=== PATIENT | male | born 1985 | race Hispanic/Latino ===

== ENCOUNTER 2017-10-29 14:39 | Emergency (ER) | payer SELFPAY ==
[2017-10-29] MEDS ORDERED: TETANUS/DIPHTHERIA TOXOID [ADULT] 0.5 ML VIAL IM ONE (15:39)
== END 2017-10-29 15:44 | disposition home or self-care (01) ==
LOC: EDH 14:39
DX: N48.89 Other specified disorders of penis (principal); Z72.0 Tobacco use
CPT/HCPCS: 90471; 90714

== ENCOUNTER 2018-01-24 13:38 | Emergency (ER) | payer OTHER | END 2018-01-24 14:09 | disposition home or self-care (01) | LOC: EDH 13:38 | DX: S09.8XXA Other specified injuries of head, initial encounter (principal); R07.89 Other chest pain; F31.9 Bipolar disorder, unspecified; Z72.0 Tobacco use; W22.8XXA Striking against or struck by other objects, initial encounter; Y93.89 Activity, other specified; Y92.89 Other specified places as the place of occurrence of the external cause; Y99.8 Other external cause status | CPT/HCPCS: 93005 ==

== ENCOUNTER 2018-05-10 18:45 | Emergency (ER) | payer OTHER ==
[2018-05-10 19:07] LABS: BASOPHILS % (AUTO) 0.4 % (0.0-5.0); EOSINOPHILS % (AUTO) 0.3 % (0.0-8.0); HEMATOCRIT 48.7 % (42-54); LYMPHOCYTES % (AUTO) 7.9 % (21.0-51.0); MEAN CORPUSCULAR HEMOGLOBIN 29.9 pg (27.0-33.0); MEAN CORPUSCULAR HGB CONC 34.3 g/dL (32.0-36.0); MEAN CORPUSCULAR VOLUME 87.3 fL (79-99); MONOCYTES % (AUTO) 8.6 % (3.0-13.0); NEUTROPHILS % (AUTO) 82.8 % (40.0-77.0); PLATELET COUNT (AUTO) 392 K/uL (130-400); RED BLOOD CELL COUNT(AUTO) 5.58 MIL/uL (4.50-6.20); WHITE BLOOD COUNT (AUTO) 15.5 K/uL (4.8-10.8)
[2018-05-10] MEDS ORDERED: SODIUM CHLORIDE 0.9% 1000ML 1,000 ML IV ONE (19:07)
[2018-05-10 19:19] LABS: CREATININE 2.5 mg/dL (0.5-1.5)
[2018-05-10] MEDS ORDERED: ONDANSETRON HCL 4 MG/2 ML VIAL ONE (19:21)
[2018-05-10 19:24] LABS: ALBUMIN 3.5 g/dL (3.5-5.0); BILIRUBIN,TOTAL 0.5 mg/dL (0.2-1.0)
[2018-05-10 20:18] LABS: BILIRUBIN,URINE Negative (NEGATIVE); COLOR,URINE Yellow (YELLOW); GLUCOSE, URINE (UA) Negative (NEGATIVE); KETONES,URINE Negative (NEGATIVE); LEUKOCYTE ESTERASE ,URINE Trace (NEGATIVE); NITRATE,URINE Negative (NEGATIVE); OCCULT BLOOD,URINE Negative (NEGATIVE); PH,URINE 5.5 (5.0-8.0); PROTEIN,URINE Negative (NEGATIVE)
[2018-05-10 20:24] LABS: AMPHET/METH SCREEN,URINE NEGATIVE (NEGATIVE); BARBITURATE SCREEN, URINE NEGATIVE (NEGATIVE); BENZODIAZEPINES SCREEN,URINE NEGATIVE (NEGATIVE); CANNABINOID SCREEN,URINE POSITIVE (NEGATIVE); COCAINE SCREEN,URINE POSITIVE (NEGATIVE); OPIATE SCREEN,URINE NEGATIVE (NEGATIVE); PHENCYCLIDINE SCREEN,URINE NEGATIVE (NEGATIVE)
[2018-05-10 20:29] LABS: APPEARANCE,URINE SLIGHTLY CLOUDY (CLEAR)
[2018-05-10 20:34] LABS: RBC,URINE 0-1 /HPF (0-1)
[2018-05-10 20:35] LABS: BACTERIA,URINE Few /HPF (None Seen)
[2018-05-10 20:36] LABS: SQUAMOUS EPITHELIAL CELL,UR Rare /HPF (0-2)
[2018-05-10 20:37] LABS: URIC ACID CRYSTALS,URINE Few /LPF (None Seen)
[2018-05-10 20:38] LABS: MUCUS,URINE Few LPF (None Seen)
== END 2018-05-10 21:34 | disposition home or self-care (01) ==
LOC: EDH 18:45
DX: T67.5XXA Heat exhaustion, unspecified, initial encounter (principal); N28.9 Disorder of kidney and ureter, unspecified; F14.10 Cocaine abuse, uncomplicated; F41.9 Anxiety disorder, unspecified; F31.9 Bipolar disorder, unspecified; Z72.0 Tobacco use; X58.XXXA Exposure to other specified factors, initial encounter; Y93.89 Activity, other specified; Y92.89 Other specified places as the place of occurrence of the external cause; Y99.8 Other external cause status
CPT/HCPCS: 36415; 80053; 80305; 81001; 82550; 85025; 96374; 99285; J2405; J7030

== ENCOUNTER → 2024-12-15 | Emergency (ER) | payer SELFPAY ==
[~2024-12-15] VITALS: Ht 190.5 cm; Wt 158.8 kg
[~2024-12-15] MED LIST: IOHEXOL-350 75 ML VIAL IV ONE
[2024-12-15 08:28] VITALS: BP 145/84; PULSE 113; RESP 18; TEMP 98.5
[2024-12-15 08:49] LABS: BASOPHILS # (AUTO) 0.08 K/uL (0.00-0.20); BASOPHILS % (AUTO) 0.4 % (0.0-5.0); EOSINOPHILS # (AUTO) 0.04 K/uL (0.00-0.70); EOSINOPHILS % (AUTO) 0.2 % (0.0-8.0); HEMATOCRIT 49.4 % (42-54); IMMATURE GRANULOCYTE ABSOLUTE 0.12 K/uL (0-1); LYMPHOCYTES % (AUTO) 10.4 % (21.0-51.0); MEAN CORPUSCULAR HEMOGLOBIN 28.8 pg (27.0-33.0); MEAN CORPUSCULAR VOLUME 87.3 fL (79-99); MONOCYTES # (AUTO) 1.3 K/uL (0.1-1.0); NEUTROPHILS # (AUTO) 15.4 K/uL (1.8-7.7); NEUTROPHILS % (AUTO) 81.4 % (40.0-77.0); PLATELET COUNT (AUTO) 353 K/uL (130-400); RED BLOOD CELL COUNT(AUTO) 5.66 MIL/uL (4.50-6.20); RED CELL DISTRIBUTION WIDTH 13.3 % (11.0-15.5); WHITE BLOOD COUNT (AUTO) 18.9 K/uL (4.8-10.8)
[2024-12-15 08:58] LABS: APPEARANCE,URINE CLEAR (CLEAR); BILIRUBIN,URINE NEGATIVE (NEGATIVE); COLOR,URINE LIGHT-ORANGE (YELLOW); GLUCOSE, URINE (UA) NEGATIVE (NEGATIVE); KETONES,URINE NEGATIVE (NEGATIVE); LEUKOCYTE ESTERASE ,URINE NEGATIVE Leu/uL (NEGATIVE); NITRATE,URINE NEGATIVE (NEGATIVE); OCCULT BLOOD,URINE NEGATIVE (NEGATIVE); PROTEIN,URINE 20 mg/dL (NEGATIVE)
[2024-12-15 08:59] LABS: ADD UA MICROSCOPIC YES
[2024-12-15 09:00] LABS: CREATININE 1.1 mg/dL (0.5-1.3); POTASSIUM 3.9 mmol/L (3.5-5.1)
[2024-12-15 09:04] LABS: ALBUMIN 3.6 g/dL (3.5-5.0); BILIRUBIN,DIRECT 0.3 mg/dL (0.0-0.3); BILIRUBIN,TOTAL 1.3 mg/dL (0.2-1.0); TOTAL PROTEIN, SERUM 7.9 g/dL (6.0-8.3)
[2024-12-15 09:04] LABS: MUCUS,URINE RARE LPF (None Seen)
--- NOTE | 2024-12-15 09:04 | NUR ---
PENDING GFR RESULTS, IV SITE, & CONSENT FOR CT EXAM. Addendum: 12/15/24 at 0906 by DUSTY DIAS RAD PATIENT IN [facility], PENDING GFR RESULTS, IV SITE, & CONSENT FOR CT EXAM.
--- NOTE | 2024-12-15 09:20 | NUR ---
PATIENT STATES "IM JUST SITTING OUT HERE LIKE A RETARD." VOICES ELOPEMENT WISHES. STATES "I HAVENT GOTTEN NO PAIN MEDICINE OR NOTHING." ADVISED PATIENT OF RISKS OF LEAVING AMA- VERBALIZED UNDERSTANDING. STATED WILL BE GOING TO ANOTHER FACILITY FOR MEDICAL ATTENTION. PT SEEN LEAVING ER LOBBY. DR MENDEZ MADE AWARE.
--- NOTE | 2024-12-15 09:21 | ERN ---
General Chief Complaint: Abdominal Pain Stated Complaint: DISTAL ABDOMINAL PAIN ONSET YESTERDAY Time Seen by MD: 08:28 History of Present Illness Initial Comments 39-year-old male no surgical history presents for lower abdominal pain beginning late last night. Reports he ate dinner normally, in the middle the night he noticed some lower abdominal discomfort that has been worsening throughout the day. No vomiting but mild nausea. No diarrhea. No urinary symptoms. No fevers. Pain is mostly located in the suprapubic area in the lower abdomen, he appears equally uncomfortable and with the right in the left lower quadrants. Past Medical History Past Medical History: Anxiety, Bipolar, Depression Medical History Other: INSOMNIA Past Surgical History: None ROS Dictation CONSTITUTIONAL: No chills, no fever, no weakness, no diaphoresis, no malaise. HEAD/FACE: No signs of trauma. EENT: No eye pain, no blurred vision, no tearing, no double vision, no ear pain, no ear discharge, no nose pain, no nasal congestion, no throat pain, no throat swelling, no mouth pain. RESPIRATORY: No cough, no orthopnea, no SOB, no stridor, no wheezing. CARDIOVASCULAR: No chest pain, no edema, no palpitations, no syncope. GASTROINTESTINAL/ABDOMINAL: Lower abdominal pain GENITOURINARY: No abnormal discharge, no dysuria, no frequent urination, no hematuria. No complaints of pain in the genitals. MUSCULOSKELETAL: No back pain, no gout, no joint pain, no joint swelling, no muscle pain, no muscle stiffness, no neck pain. INTEGUMENTARY: No change in color, no change in hair/nails, no dryness, no lesion, no lumps, no rash. NEUROLOGICAL/PSYCH: No anxiety, not depressed, no emotional problem, no head ache, no numbness, no pre-existing deficit, no history of seizures, no tremors, no weakness. HEMATOLOGIC/LYMPHATIC: Not anemic, no history of blood clots, no apparent bleeding, no bruising, glands not swollen. All Systems Negative, Except as Noted. Physical Exam Physical Exam Dictation VITAL SIGNS: Reviewed. GENERAL APPEARANCE: Alert, oriented x3, no acute distress, obese. HEAD AND FACE: Non-traumatic. EYES: PERRL, pink conjunctivas, eyelid no trauma, anterior chamber clear. EARS: Pinnas intact and no signs of trauma or erythema. Ear canals clear and no discharge. TMs no erythema. NOSE: No discharge, no bleeding. OROPHARYNX: Mouth normal, teeth no caries, tongue pink. Pharynx clear, no erythema. Tonsils no exudates, no abscesses noted. Mucous membrane moist. NECK: Supple, non-tender, no thyromegaly, no masses, no JVD, no bruits. BREAST: Deferred. CHEST: No tenderness, no crepitus, no paradoxical movement, no retractions. LUNGS: Clear, well-ventilated, symmetric, no rales, no wheezing, no rhonchi, no stridor, good breath sounds bilaterally. HEART: Regular rate, regular rhythm, no murmur, no gallops. VASCULAR: No peripheral edema. ABDOMEN: Soft, positive bowel sounds, nondistended, no guarding, nontender, no rebound, no masses no hepatomegaly, no splenomegaly, no Blanco's sign, no hernias. RECTAL: Deferred. GENITAL: Deferred. NEUROLOGICAL: Normal speech, gross motor function intact, gross sensory function intact. MUSCULOSKELETAL: Neck nontender, full range of motion, back nontender, full range of motion. EXTREMITIES: Nontender, full range of motion. SKIN: Color pink, dry, no turgor, no rash, no lacerations, no abrasions, no contusions. LYMPHATICS: Deferred. Results Laboratory and Microbiology Lab and Micro Result Laboratory Tests Test 12/15/24 08:43 12/15/24 08:44 White Blood Count 18.9 K/uL (4.8-10.8) H Red Blood Count 5.66 MIL/uL (4.50-6.20) Hemoglobin 16.3 g/dL (14.0-18.0) Hematocrit 49.4 % (42-54) Mean Corpuscular Volume 87.3 fL (79-99) Mean Corpuscular Hemoglobin 28.8 pg (27.0-33.0) Mean Corpuscular Hemoglobin Concent 33.0 g/dL (32.0-36.0) Red Cell Distribution Width 13.3 % (11.0-15.5) Platelet Count 353 K/uL (130-400) Mean Platelet Volume 9.6 fL (7.5-10.5) Immature Granulocyte % (Auto) 0.6 % (0-1) Neutrophils (%) (Auto) 81.4 % (40.0-77.0) H Lymphocytes (%) (Auto) 10.4 % (21.0-51.0) L Monocytes (%) (Auto) 7.0 % (3.0-13.0) Eosinophils (%) (Auto) 0.2 % (0.0-8.0) Basophils (%) (Auto) 0.4 % (0.0-5.0) Neutrophils # (Auto) 15.4 K/uL (1.8-7.7) H Lymphocytes # (Auto) 2.0 K/uL (1.0-4.8) Monocytes # (Auto) 1.3 K/uL (0.1-1.0) H Eosinophils # (Auto) 0.04 K/uL (0.00-0.70) Basophils # (Auto) 0.08 K/uL (0.00-0.20) Absolute Immature Granulocyte (auto 0.12 K/uL (0-1) Nucleated Red Blood Cells 0.0 % (0.0-0.19) Sodium Level 136 mmol/L (136-145) Potassium Level 3.9 mmol/L (3.5-5.1) Chloride Level 98 mmol/L (101-111) L Carbon Dioxide Level 31 mmol/L (21-32) Blood Urea Nitrogen 12 mg/dL (7-18) Creatinine 1.1 mg/dL (0.5-1.3) Glomerular Filtration Rate Calc 89 mL/min (>90) Random Glucose 119 mg/dL (70-105) H Total Calcium 8.8 mg/dL (8.5-10.1) Total Bilirubin 1.3 mg/dL (0.2-1.0) H Direct Bilirubin 0.3 mg/dL (0.0-0.3) Aspartate Amino Transf (AST/SGOT) 19 U/L (10-37) Alanine Aminotransferase (ALT/SGPT) 59 U/L (12-78) Alkaline Phosphatase 79 U/L (50-136) Total Protein 7.9 g/dL (6.0-8.3) Albumin 3.6 g/dL (3.5-5.0) Lipase 177 U/L (16-77) H Urine Color LIGHT-ORANGE (YELLOW) Urine Appearance CLEAR (CLEAR) Urine pH 6.0 (5.0-8.0) Urine Specific [place] 1.029 (1.001-1.031) Urine Protein 20 mg/dL (NEGATIVE) H Urine Glucose (UA) NEGATIVE mg/dL (NEGATIVE) Urine Ketones NEGATIVE mg/dL (NEGATIVE) Urine Occult Blood NEGATIVE (NEGATIVE) Urine Nitrate NEGATIVE (NEGATIVE) Urine Bilirubin NEGATIVE mg/dL (NEGATIVE) Urine Urobilinogen 2.0 mg/dL (0.2-1.0) H Urine Leukocyte Esterase NEGATIVE Luis Miguel/uL Urine RBC 2-5 /HPF (0-1) H Urine WBC 2-5 /HPF (0-1) H Urine Bacteria None /HPF (None Seen) MDM CC: Lower abdominal pain Historian: Patient Comorbidities: Bipolar anxiety depression Limitations by social determinants of health: None Differential diagnosis: GI pathology surgical pathology, appendicitis, UTI, enteritis, gastroenteritis, perforation, sepsis, other Vital signs: tachycardia 113 otherwise vital signs stable. Labs (independently ordered and interpreted by me ): Leukocytosis 18.9 K, left shift 81% neutrophils. No bands. Chemistry panel shows stable electrolytes stable liver enzymes stable lipase. Urinalysis unremarkable. Patient was evaluated by me. I ordered labs in came up with a plan for the patient. We discussed labs and a CT scan due to the lower abdominal pain. I had reviewed the patient's vital signs and lab work once it was done, and we were pending a CT scan, but I was told by the RN that the patient walked out of the department without talking to anybody. ED Course Orders Procedure Category Date Status Time Cbc With Differential LAB 12/15/24 Complete 08:34 Urinalysis Profile LAB 12/15/24 Complete 08:34 Lipase LAB 12/15/24 Complete 08:34 Basic Metabolic Panel LAB 12/15/24 Complete 08:34 Hepatic Function Panel LAB 12/15/24 Complete 08:34 Iohexol (Omnipaque) PHA 12/15/24 Complete 09:14 Current Medications Medications (Trade) Dose Ordered Sig/Cheryl Route PRN Reason Start Time Stop Time Status Last Admin Dose Admin Iohexol (Omnipaque) 75 ml STK-MED ONCE IV 12/15/24 09:14 12/15/24 09:14 DC Vital Signs Date Time Temp Pulse Resp B/P (MAP) Pulse Ox O2 Delivery O2 Flow Rate FiO2 12/15/24 08:28 98.4 113 18 145/84 97 Room Air 0 DX & DISP Disposition: Other(Comment) (ELOPED) Departure Impression: Primary Impression: Lower abdominal pain Additional Impressions: Eloped from emergency department, Leukocytosis Condition: Stable Referrals: SELF,REFERRAL (PCP) JAY MENDEZ DO Dec 15, 2024 09:21
== END ==
LOC: EDH 08:26
DX: R10.30 Lower abdominal pain, unspecified (principal); D72.829 Elevated white blood cell count, unspecified; F31.9 Bipolar disorder, unspecified; F41.9 Anxiety disorder, unspecified
CPT/HCPCS: 36415; 80048; 80076; 81001; 83690; 85025; 99283; Q9967